=== PATIENT | male | born 1940 | race Caucasian/White ===

== ENCOUNTER 2020-02-14 05:56 | Observation (INO) ==
[2020-02-14] MEDS ORDERED: Buffered Lidocaine 1% SYRIN 1 ml INTRADERM ONE (06:00)
[2020-02-14] MEDS ORDERED: Lactated Ringers 1000 ml BAG 1,000 ML IV SCH (06:00)
[2020-02-14] MEDS ORDERED: ceFAZolin 2 GM PREMIX 2 GM/50 ML BAG ONE (06:21)
[2020-02-14] MEDS ORDERED: Bupivacaine 0.25% SDV 30 ML ONE (06:56)
[2020-02-14] MEDS ORDERED: Dexamethasone IV 4 MG/ML VIAL 1 ml VIAL ONE (06:57)
[2020-02-14] MEDS ORDERED: Ondansetron 4 mg VIAL 2 MG/ML 2 ml VIAL ONE (06:57)
[2020-02-14] MEDS ORDERED: fentaNYL 100 mcg/2 ml 50 MCG/ML VIAL ONE (06:58)
[2020-02-14] MEDS ORDERED: Midazolam 2 mg/2 ml VIAL 1 mg/ml 2 ml VIAL (2 mg) ONE (06:59)
[2020-02-14 07:09] LABS: Activated Partial Thrombo Time 34.9 seconds (26.0-38.0); INR 1.71 (0.82-1.09)
[2020-02-14] MEDS ORDERED: Levalbuterol HFA INHALER MDI ONE (08:26)
[2020-02-14] MEDS ORDERED: Labetalol IV 5 MG/ML 20 ml VIAL ONE (08:34)
[2020-02-14] MEDS ORDERED: Metoprolol Tartrate 5 mg VIAL 5 ml VIAL (1 mg/ml) ONE (08:34)
[2020-02-14] MEDS ORDERED: Lidocaine 1% w EPI 1:100,000 MDV 20 ML VIAL ONE (08:43)
[2020-02-14] MEDS ORDERED: Phenylephrine 40 mcg/mL 10mL (400mcg) SYRINGE ONE (08:56)
[2020-02-14] MEDS ORDERED: Naloxone 0.4 mg VIAL 0.4 mg/ml 1 ml VIAL IV PRN (09:08)
[2020-02-14] MEDS ORDERED: fentaNYL 100 mcg/2 ml 50 MCG/ML VIAL IV PRN (09:08)
[2020-02-14] MEDS ORDERED: DiMENhydriNATE IV 50 mg/ml 1 ml VIAL IV PUSH PRN (09:08)
[2020-02-14] MEDS ORDERED: Phenylephrine IV 10 MG/ML 1 ml VIAL ONE (09:10)
[2020-02-14 09:42] LABS: ABS Basophils 0.1 10^3/ul (0-0.2); ABS Lymphocytes 1.9 10^3/ul (1.0-4.8); ABS Monocytes 1.1 10^3/ul (0-0.8); ABS Neutrophils 11.1 10^3/ul (1.5-7.7); Eosinophil % 6.3 %; Hematocrit 34 % (42-52); Hemoglobin 11.2 g/dL (14.0-18.0); Lymphocyte % 12.3 %; Mean Corpuscular HGB Conc 33 g/dL (31-36); Mean Corpuscular Hemoglobin 33 pg (27-31); Mean Corpuscular Volume 101 fL (80-94); Mean Platelet Volume 8.4 fL (7.4-10.4); Platelet Count 314 10^3/uL (150-450); Red Blood Count 3.39 10^6 /uL (4.18-5.48); Red Cell Distribution Width 15 % (10-15); White Blood Count 15.1 10^3/uL (3.5-10.8)
[2020-02-14 09:59] LABS: BUN/Creatinine Ratio 25.5 (8-20); EGFR African American 32.1 (>60); EGFR Non-African American 26.5 (>60); Potassium 4.2 mmol/L (3.5-5.0)
[2020-02-14] MEDS ORDERED: Dextrose 50% Syringe 50 ml 25 GM/50 ML SYRINGE IV PUSH PRN (11:11)
[2020-02-14] MEDS: Furosemide 40 mg/4 ml IV VIAL IV SCH (12:47)
[2020-02-14] MEDS: Heparin 5000 UNITS/ML 1 mL VIAL SUBCUT SCH ×2 (12:47→22:50)
[2020-02-14] MEDS ORDERED: Warfarin DAILY REMINDER **NOTE FOLLOW UP SCH (17:00)
[2020-02-15] MEDS: Heparin 5000 UNITS/ML 1 mL VIAL SUBCUT SCH (05:55)
[2020-02-15 06:36] LABS: ABS Basophils 0.1 10^3/ul (0-0.2); ABS Lymphocytes 1.1 10^3/ul (1.0-4.8); ABS Monocytes 0.9 10^3/ul (0-0.8); ABS Neutrophils 16.2 10^3/ul (1.5-7.7); Eosinophil % 0.1 %; Hematocrit 37 % (42-52); Lymphocyte % 5.9 %; Mean Corpuscular HGB Conc 33 g/dL (31-36); Mean Corpuscular Hemoglobin 34 pg (27-31); Mean Corpuscular Volume 102 fL (80-94); Mean Platelet Volume 8.7 fL (7.4-10.4); Platelet Count 322 10^3/uL (150-450); Red Blood Count 3.57 10^6 /uL (4.18-5.48); Red Cell Distribution Width 16 % (10-15); White Blood Count 18.3 10^3/uL (3.5-10.8)
[2020-02-15 07:07] LABS: BUN/Creatinine Ratio 24.8 (8-20); Calcium 8.9 mg/dL (8.6-10.3); EGFR African American 28.3 (>60); EGFR Non-African American 23.4 (>60); Potassium 4.9 mmol/L (3.5-5.0)
[2020-02-15 07:13] LABS: INR 2.1 (0.82-1.09)
[2020-02-15] MEDS: Furosemide 40 mg/4 ml IV VIAL IV SCH (09:59)
[2020-02-15 12:20] VITALS: BP 92/60
== END 2020-02-15 13:15 | disposition home or self-care (01) ==
LOC: OR 05:56 → MEDTELE 05:56
PROVIDERS: ADMIT Student in an Organized Health Care Education/Training Program; ATTEND Surgery

== ENCOUNTER 2020-03-01 18:23 | Inpatient (IN) ==
[2020-03-01] MEDS ORDERED: NS 0.9% 1000 ml BAG 1,000 ML IV ONE ×2 (19:19→21:34)
[2020-03-01 19:54] LABS: Hematocrit 25 % (42-52); Hemoglobin 8.3 g/dL (14.0-18.0); Mean Corpuscular HGB Conc 33 g/dL (31-36); Mean Corpuscular Hemoglobin 34 pg (27-31); Mean Corpuscular Volume 101 fL (80-94); Mean Platelet Volume 7.8 fL (7.4-10.4); Platelet Count 137 10^3/uL (150-450); Red Blood Count 2.46 10^6 /uL (4.18-5.48); Red Cell Distribution Width 15 % (10-15); White Blood Count 2.5 10^3/uL (3.5-10.8)
[2020-03-01 20:05] LABS: ALT 32 U/L (7-52); AST 42 U/L (13-39); Albumin 2.4 g/dL (3.2-5.2); Albumin/Globulin Ratio 0.8 (1-3); Alkaline Phosphatase 96 U/L (34-104); C Reactive Protein 211.56 mg/L (<8.01); CO2 Carbon Dioxide 23 mmol/L (22-32); Chloride 106 mmol/L (101-111); EGFR African American 25.5 (>60); Globulin 3.1 g/dL (2-4); Glucose 194 mg/dL (70-100); Sodium 138 mmol/L (135-145); Total Protein 5.5 g/dL (6.4-8.9)
[2020-03-01 20:07] LABS: INR 5.69 (0.82-1.09)
[2020-03-01 20:12] LABS: Anion Gap 9 mmol/L (2-11); Potassium 5.4 mmol/L (3.5-5.0)
[2020-03-01 20:13] LABS: Troponin I 0.03 ng/mL (<0.03)
[2020-03-01 20:21] LABS: BUN/Creatinine Ratio 46.9 (8-20); Blood Urea Nitrogen 137 mg/dL (6-24)
[2020-03-01 20:27] LABS: ABS Lymphocytes 0.3 10^3/ul (1.0-4.8); ABS Neutrophils 2.2 10^3/ul (1.5-7.7); Eosinophil % 0.1 %; Lymphocyte % 11.7 %
[2020-03-01 20:43] LABS: TSH Ultra Thyroid Stim Horm 1.96 mcIU/mL (0.34-5.60)
[2020-03-01 21:07] LABS: Urine Appearance Cloudy; Urine Bilirubin Negative (Negative); Urine Blood Negative (Negative); Urine Color Yellow; Urine Glucose Negative (Negative); Urine Ketones Negative (Negative); Urine Nitrite Negative (Negative); Urine Protein Negative (Negative); Urine Specific Gravity 1.013 (1.010-1.030); Urine Urobilinogen Negative (Negative)
[2020-03-01] MEDS ORDERED: Piperacillin/Tazobac ADVAN 3.375 GM in NS 0.9% 100 ml BAG 100 ML IV ONE (22:42)
[2020-03-01] MEDS ORDERED: Dextrose 50% Syringe 50 ml 25 GM/50 ML SYRINGE IV PUSH PRN (22:50)
[2020-03-01] MEDS ORDERED: Zosyn per Pharmacy NOTE FOLLOW UP SCH (23:00)
[2020-03-01] MEDS ORDERED: Morphine ORAL.SOLN 10 mg 2 mg/ml UDC 5 ml (10 mg) PO PRN (23:26)
[2020-03-02 02:58] LABS: Troponin I 0.02 ng/mL (<0.03)
[2020-03-02] MEDS: DOXYcycline 100 MG in NS 0.9% 250 ml 250 ML IVPB SCH ×2 (03:21→15:47)
[2020-03-02 07:33] LABS: Albumin/Globulin Ratio 0.8 (1-3); C Reactive Protein 156.15 mg/L (<8.01); Calcium 8.2 mg/dL (8.6-10.3); EGFR African American 25.9 (>60); EGFR Non-African American 21.4 (>60); Globulin 2.4 g/dL (2-4); Total Bilirubin 0.3 mg/dL (0.2-1.0); Total Protein 4.4 g/dL (6.4-8.9)
[2020-03-02 07:50] LABS: BUN/Creatinine Ratio 52.8 (8-20)
[2020-03-02 08:03] LABS: INR 4.22 (0.82-1.09)
[2020-03-02 08:44] LABS: Potassium 5.2 mmol/L (3.5-5.0)
[2020-03-02 08:46] LABS: ABS Lymphocytes 0.4 10^3/ul (1.0-4.8); ABS Neutrophils 2.3 10^3/ul (1.5-7.7); Eosinophil % 0.2 %; Hematocrit 19 % (42-52); Hemoglobin 6.2 g/dL (14.0-18.0); Lymphocyte % 14.3 %; Mean Corpuscular HGB Conc 34 g/dL (31-36); Mean Corpuscular Hemoglobin 34 pg (27-31); Mean Corpuscular Volume 100 fL (80-94); Mean Platelet Volume 8.3 fL (7.4-10.4); Nucleated Red Blood Cells % 0.1; Platelet Count 108 10^3/uL (150-450); Red Blood Count 1.86 10^6 /uL (4.18-5.48); Red Cell Distribution Width 14 % (10-15); White Blood Count 2.7 10^3/uL (3.5-10.8)
[2020-03-02] MEDS ORDERED: Aspirin EC 81 mg TAB.EC (enteric coated) PO SCH (09:00)
[2020-03-02] MEDS: CEFEPIME 2 GM in Dextrose 50 mL IV SCH (09:53)
[2020-03-02] MEDS ORDERED: NS 0.9% 250 ml 250 ML IV ONE (14:21)
[2020-03-02] MEDS ORDERED: Phenylephrine IV 10 MG/ML 1 ml VIAL ONE (15:30)
[2020-03-02] MEDS ORDERED: Phenylephrine IV 50 MG in NS 0.9% 250 ml 245 ML IV SCH (16:00)
[2020-03-02] MEDS ORDERED: Phytonadione IV (Adult) 10 MG in NS 0.9% 50 ML 50 ML IV ONE (16:31)
[2020-03-02] MEDS: Pantoprazole 80 mg in NS BAG 80 MG/250 ML BAG IV SCH (17:54)
[2020-03-02] MEDS: Octreotide Acetate 500 MCG in NS 0.9% 100 ml BAG 100 ML IV SCH (17:54)
[2020-03-02] MEDS ORDERED: CMCS: Pravastatin 20 mg TAB (NF) PO SCH ×2 (18:00→21:00)
[2020-03-02] MEDS ORDERED: Vancomycin per Pharmacy 1 EA NOTE FOLLOW UP PRN (18:28)
[2020-03-02 18:57] LABS: Hematocrit 20 % (42-52); Hemoglobin 6.8 g/dL (14.0-18.0); Mean Corpuscular HGB Conc 34 g/dL (31-36); Mean Corpuscular Hemoglobin 32 pg (27-31); Mean Corpuscular Volume 96 fL (80-94); Mean Platelet Volume 8.1 fL (7.4-10.4); Platelet Count 84 10^3/uL (150-450); Red Blood Count 2.11 10^6 /uL (4.18-5.48); Red Cell Distribution Width 18 % (10-15)
[2020-03-02] MEDS ORDERED: Vancomycin 1,500 MG in NS 0.9% 250 ml 250 ML IVPB ONE (19:00)
[2020-03-02] MEDS ORDERED: Pantoprazole VIAL 40 MG VIAL IV SCH (21:00)
[2020-03-02] MEDS ORDERED: Lactated Ringers 500 ml BAG 500 ML IV ONE (21:58)
[2020-03-03 01:04] LABS: INR 1.24 (0.82-1.09)
[2020-03-03] MEDS: Octreotide Acetate 500 MCG in NS 0.9% 100 ml BAG 100 ML IV SCH ×2 (02:15→13:15)
[2020-03-03] MEDS: Pantoprazole 80 mg in NS BAG 80 MG/250 ML BAG IV SCH ×2 (04:57→15:50)
[2020-03-03] MEDS ORDERED: Vancomycin Random Level NOTE FOLLOW UP ONE (06:00)
[2020-03-03 06:26] LABS: INR 1.11 (0.82-1.09)
[2020-03-03 06:32] LABS: Hematocrit 19 % (42-52); Hemoglobin 6.6 g/dL (14.0-18.0); Mean Corpuscular HGB Conc 34 g/dL (31-36); Mean Corpuscular Hemoglobin 32 pg (27-31); Mean Corpuscular Volume 94 fL (80-94); Mean Platelet Volume 8.1 fL (7.4-10.4); Platelet Count 60 10^3/uL (150-450); Red Blood Count 2.07 10^6 /uL (4.18-5.48); Red Cell Distribution Width 17 % (10-15); White Blood Count 3.8 10^3/uL (3.5-10.8)
[2020-03-03 06:41] LABS: Albumin 2.2 g/dL (3.2-5.2); Albumin/Globulin Ratio 1.1 (1-3); Calcium 8.3 mg/dL (8.6-10.3); Phosphorus 3.7 mg/dL (2.5-5.0); Total Bilirubin 0.5 mg/dL (0.2-1.0); Total Protein 4.2 g/dL (6.4-8.9)
[2020-03-03 06:43] LABS: Vancomycin Random 12.7 mcg/mL
[2020-03-03 06:51] LABS: Potassium 5.3 mmol/L (3.5-5.0)
[2020-03-03 08:29] LABS: ABS Lymphocytes 0.6 10^3/ul (1.0-4.8); ABS Neutrophils 3.1 10^3/ul (1.5-7.7); Lymphocyte % 15.6 %
[2020-03-03] MEDS ORDERED: Vancomycin 1,250 MG IV x ONCE IVPB ONE (10:00)
[2020-03-03] MEDS: CEFEPIME 2 GM in Dextrose 50 mL IV SCH (10:23)
[2020-03-03 10:24] LABS: Digoxin 1.6 ng/ml (0.8-2.0)
[2020-03-03 11:40] LABS: Hematocrit 23 % (42-52); Hemoglobin 7.5 g/dL (14.0-18.0)
[2020-03-03 11:55] LABS: Body Fluid Source Peritonial Fluid
[2020-03-03 12:39] LABS: Body Fluid Mono 4 %
[2020-03-03 13:18] LABS: Activated Partial Thrombo Time 23.3 seconds (26.0-38.0); Fibrinogen 392.7 mg/dL (110.8-404.3)
[2020-03-03 18:18] LABS: Hematocrit 22 % (42-52); Hemoglobin 7.6 g/dL (14.0-18.0); Mean Corpuscular HGB Conc 35 g/dL (31-36); Mean Corpuscular Hemoglobin 32 pg (27-31); Mean Corpuscular Volume 93 fL (80-94); Mean Platelet Volume 7.7 fL (7.4-10.4); Platelet Count 53 10^3/uL (150-450); Red Blood Count 2.38 10^6 /uL (4.18-5.48); Red Cell Distribution Width 17 % (10-15); White Blood Count 4.5 10^3/uL (3.5-10.8)
[2020-03-03 21:41] LABS: Hematocrit 22 % (42-52); Hemoglobin 7.5 g/dL (14.0-18.0); Mean Corpuscular HGB Conc 34 g/dL (31-36); Mean Corpuscular Hemoglobin 31 pg (27-31); Mean Corpuscular Volume 93 fL (80-94); Mean Platelet Volume 7.9 fL (7.4-10.4); Platelet Count 54 10^3/uL (150-450); Red Blood Count 2.39 10^6 /uL (4.18-5.48); Red Cell Distribution Width 18 % (10-15); White Blood Count 4.6 10^3/uL (3.5-10.8)
[2020-03-04] MEDS: Octreotide Acetate 500 MCG in NS 0.9% 100 ml BAG 100 ML IV SCH ×2 (00:10→10:34)
[2020-03-04] MEDS: Pantoprazole 80 mg in NS BAG 80 MG/250 ML BAG IV SCH ×2 (01:24→10:34)
[2020-03-04 05:50] LABS: Hematocrit 22 % (42-52); Hemoglobin 7.3 g/dL (14.0-18.0); INR 1.13 (0.82-1.09); Mean Corpuscular HGB Conc 34 g/dL (31-36); Mean Corpuscular Hemoglobin 32 pg (27-31); Mean Corpuscular Volume 94 fL (80-94); Mean Platelet Volume 7.8 fL (7.4-10.4); Platelet Count 46 10^3/uL (150-450); Red Cell Distribution Width 18 % (10-15); White Blood Count 4.1 10^3/uL (3.5-10.8)
[2020-03-04 05:55] LABS: Vancomycin Random 16.4 mcg/mL
[2020-03-04] MEDS ORDERED: Vancomycin Random Level NOTE FOLLOW UP ONE (06:00)
[2020-03-04 06:06] LABS: Calcium 8.3 mg/dL (8.6-10.3); EGFR African American 22.6 (>60); EGFR Non-African American 18.7 (>60); Phosphorus 3.5 mg/dL (2.5-5.0)
[2020-03-04 06:25] LABS: BUN/Creatinine Ratio 48.5 (8-20)
[2020-03-04] MEDS: CEFEPIME 2 GM in Dextrose 50 mL IV SCH (07:44)
[2020-03-04 14:50] LABS: Fluid Type, Glucose PERITONEAL; Glucose, BF 170 mg/dL
[2020-03-04 14:56] LABS: Fluid Type, Protein, Total PERITONEAL
[2020-03-04] MEDS ORDERED: fentaNYL 100 mcg/2 ml 50 MCG/ML VIAL ONE (15:11)
[2020-03-04] MEDS ORDERED: Midazolam 10 mg/10 ml VIAL 1 mg/ml 10 ml VIAL (10 mg) ONE (15:11)
[2020-03-04] MEDS ORDERED: Desmopressin Acetate 20 MCG in NS 0.9% 50 ML 50 ML IVPB ONE ×2 (15:25→17:00)
[2020-03-04 17:27] LABS: Hematocrit 22 % (42-52); Hemoglobin 7.1 g/dL (14.0-18.0); Mean Corpuscular HGB Conc 33 g/dL (31-36); Mean Corpuscular Hemoglobin 31 pg (27-31); Mean Corpuscular Volume 95 fL (80-94); Mean Platelet Volume 7.9 fL (7.4-10.4); Platelet Count 72 10^3/uL (150-450); Red Blood Count 2.28 10^6 /uL (4.18-5.48); Red Cell Distribution Width 18 % (10-15); White Blood Count 4.6 10^3/uL (3.5-10.8)
[2020-03-04] MEDS: Pantoprazole VIAL 40 MG VIAL IV SCH (20:14)
[2020-03-05 04:50] LABS: Calcium 8.1 mg/dL (8.6-10.3); EGFR African American 22.7 (>60); EGFR Non-African American 18.8 (>60); Potassium 4.5 mmol/L (3.5-5.0)
[2020-03-05 04:53] LABS: Hematocrit 22 % (42-52); Hemoglobin 7.2 g/dL (14.0-18.0); Mean Corpuscular HGB Conc 33 g/dL (31-36); Mean Corpuscular Hemoglobin 31 pg (27-31); Mean Corpuscular Volume 95 fL (80-94); Mean Platelet Volume 7.6 fL (7.4-10.4); Platelet Count 57 10^3/uL (150-450); Red Blood Count 2.31 10^6 /uL (4.18-5.48); Red Cell Distribution Width 17 % (10-15); White Blood Count 3.3 10^3/uL (3.5-10.8)
[2020-03-05 05:06] LABS: BUN/Creatinine Ratio 42.2 (8-20)
[2020-03-05] MEDS: CEFEPIME 2 GM in Dextrose 50 mL IV SCH (09:43)
[2020-03-05] MEDS: Pantoprazole VIAL 40 MG VIAL IV SCH ×2 (09:47→20:52)
[2020-03-05] MEDS ORDERED: Dextrose 50% Syringe 50 ml 25 GM/50 ML SYRINGE IV PUSH PRN (10:42)
[2020-03-05 23:26] LABS: Hematocrit 23 % (42-52); Hemoglobin 7.8 g/dL (14.0-18.0)
[2020-03-06 05:57] LABS: BUN/Creatinine Ratio 40.7 (8-20); Calcium 8.1 mg/dL (8.6-10.3); EGFR African American 24.7 (>60); EGFR Non-African American 20.4 (>60); Magnesium 1.9 mg/dL (1.9-2.7); Potassium 4.4 mmol/L (3.5-5.0)
[2020-03-06 05:58] LABS: Hematocrit 23 % (42-52); Hemoglobin 7.6 g/dL (14.0-18.0); Mean Corpuscular HGB Conc 33 g/dL (31-36); Mean Corpuscular Hemoglobin 31 pg (27-31); Mean Corpuscular Volume 94 fL (80-94); Mean Platelet Volume 9.3 fL (7.4-10.4); Platelet Count 53 10^3/uL (150-450); Red Blood Count 2.45 10^6 /uL (4.18-5.48); Red Cell Distribution Width 17 % (10-15)
[2020-03-06] MEDS ORDERED: Magnesium Sulfate IV 1GM/100ML 1 GM/100 ML BAG IV ONE (06:07)
[2020-03-06] MEDS: Pantoprazole VIAL 40 MG VIAL IV SCH ×2 (08:33→20:03)
[2020-03-06] MEDS: CEFEPIME 2 GM in Dextrose 50 mL IV SCH (08:35)
[2020-03-06 10:30] LABS: ABS Lymphocytes 0.8 10^3/ul (1.0-4.8); ABS Monocytes 0.3 10^3/ul (0-0.8); ABS Neutrophils 1.9 10^3/ul (1.5-7.7); ABS Nucleated RBC 0.4 10^3/ul; Eosinophil % 0.5 %; Lymphocyte % 27.2 %; Nucleated Red Blood Cells % 14.3
[2020-03-06 10:33] LABS: Polychromasia 1+
[2020-03-07 06:56] LABS: BUN/Creatinine Ratio 37.7 (8-20); Blood Urea Nitrogen 112 mg/dL (6-24); CO2 Carbon Dioxide 18 mmol/L (22-32); Calcium 8.2 mg/dL (8.6-10.3); EGFR Non-African American 20.6 (>60); Glucose 147 mg/dL (70-100); Potassium 4.5 mmol/L (3.5-5.0); Sodium 142 mmol/L (135-145)
[2020-03-07 07:04] LABS: Hematocrit 25 % (42-52); Hemoglobin 8.1 g/dL (14.0-18.0); Mean Corpuscular HGB Conc 33 g/dL (31-36); Mean Corpuscular Hemoglobin 31 pg (27-31); Mean Corpuscular Volume 95 fL (80-94); Mean Platelet Volume 10.8 fL (7.4-10.4); Platelet Count 78 10^3/uL (150-450); Red Blood Count 2.59 10^6 /uL (4.18-5.48); Red Cell Distribution Width 17 % (10-15)
[2020-03-07 07:20] LABS: Anion Gap 7 mmol/L (2-11); Chloride 117 mmol/L (101-111)
[2020-03-07] MEDS: Pantoprazole VIAL 40 MG VIAL IV SCH (08:36)
[2020-03-07 10:08] LABS: Eosinophil % 0.7 %; White Blood Count 4.5 10^3/uL (3.5-10.8)
[2020-03-07 16:04] LABS: Iron 23 ug/dL (50-212); Total Iron Binding Capacity 231 mcg/dL (250-450); Transferrin 165 mg/dL (203-362)
[2020-03-07 16:05] LABS: % Iron Saturation 10 % (15-55); Unsaturated Iron Binding < 216 ug/dL
[2020-03-07 16:28] LABS: Vitamin B12 1344 pg/mL (180-914)
[2020-03-08 06:57] LABS: Hematocrit 25 % (42-52); Hemoglobin 7.9 g/dL (14.0-18.0); Mean Corpuscular HGB Conc 32 g/dL (31-36); Mean Corpuscular Hemoglobin 31 pg (27-31); Mean Corpuscular Volume 96 fL (80-94); Mean Platelet Volume 11.2 fL (7.4-10.4); Platelet Count 165 10^3/uL (150-450); Red Blood Count 2.56 10^6 /uL (4.18-5.48); Red Cell Distribution Width 17 % (10-15)
[2020-03-08 07:04] LABS: BUN/Creatinine Ratio 33.8 (8-20); Calcium 8.3 mg/dL (8.6-10.3); EGFR African American 24.2 (>60); Magnesium 2.1 mg/dL (1.9-2.7); Potassium 4.4 mmol/L (3.5-5.0)
[2020-03-08 08:20] LABS: White Blood Count 6.4 10^3/uL (3.5-10.8)
[2020-03-08] MEDS: Iron Sucrose 200 MG in NS 0.9% 100 ml BAG 100 ML IVPB SCH (19:46)
[2020-03-09 07:37] LABS: Hematocrit 24 % (42-52); Hemoglobin 7.8 g/dL (14.0-18.0); Mean Corpuscular HGB Conc 32 g/dL (31-36); Mean Corpuscular Hemoglobin 31 pg (27-31); Mean Corpuscular Volume 97 fL (80-94); Platelet Count 261 10^3/uL (150-450); Red Blood Count 2.48 10^6 /uL (4.18-5.48); Red Cell Distribution Width 17 % (10-15)
[2020-03-09 07:45] LABS: BUN/Creatinine Ratio 31.2 (8-20); Calcium 7.9 mg/dL (8.6-10.3); EGFR African American 23.7 (>60); EGFR Non-African American 19.6 (>60); Potassium 4.4 mmol/L (3.5-5.0)
[2020-03-09 08:23] LABS: Polychromasia 2+
[2020-03-09 08:24] LABS: ABS Lymphocytes 1.5 10^3/ul (1.0-4.8); ABS Monocytes 1.2 10^3/ul (0-0.8); ABS Neutrophils 5.3 10^3/ul (1.5-7.7); ABS Nucleated RBC 7.3 10^3/ul; Eosinophil % 0.2 %; Nucleated Red Blood Cells % 90.3
[2020-03-09] MEDS: Iron Sucrose 200 MG in NS 0.9% 100 ml BAG 100 ML IVPB SCH (09:27)
[2020-03-09] MEDS: Sodium Bicarb 650 mg (ANTACID) TAB PO SCH (21:45)
[2020-03-10 06:07] LABS: Hematocrit 24 % (42-52); Hemoglobin 7.7 g/dL (14.0-18.0); Mean Corpuscular HGB Conc 33 g/dL (31-36); Mean Corpuscular Hemoglobin 31 pg (27-31); Mean Corpuscular Volume 96 fL (80-94); Mean Platelet Volume 10.4 fL (7.4-10.4); Platelet Count 399 10^3/uL (150-450); Red Blood Count 2.45 10^6 /uL (4.18-5.48); Red Cell Distribution Width 17 % (10-15); White Blood Count 10.3 10^3/uL (3.5-10.8)
[2020-03-10 06:29] LABS: BUN/Creatinine Ratio 30.4 (8-20); Calcium 8.1 mg/dL (8.6-10.3); EGFR African American 24.4 (>60); EGFR Non-African American 20.2 (>60); Potassium 4.7 mmol/L (3.5-5.0)
[2020-03-10] MEDS: Sodium Bicarb 650 mg (ANTACID) TAB PO SCH (09:59)
[2020-03-10] MEDS: Iron Sucrose 200 MG in NS 0.9% 100 ml BAG 100 ML IVPB SCH (10:00)
[2020-03-10 14:00] VITALS: BP 87/57
== END 2020-03-10 14:15 | disposition home or self-care (01) | DRG 871 ==
LOC: ED 18:23 → MED 22:04 → ICU 03-02 15:24 → MEDTELE 03-06 11:22 → MED 03-08 20:45
PROVIDERS: ADMIT Internal Medicine; ATTEND Internal Medicine